=== PATIENT | female | born 1980 | race Caucasian/White ===

== ENCOUNTER 2022-10-27 14:32 | Emergency (ER) | payer MEDICAID ==
[~2022-10-27] VITALS: Ht 160 cm; Wt 81.6 kg
[2022-10-27] MEDS ORDERED: LIDOCAINE VISCUS 2% 15 ML UDC MM ONE (15:15)
[2022-10-27] MEDS ORDERED: MAG HYDROX/AL HYDROX/SIMETH 30 ML LIQUID UDC PO ONE (15:15)
[2022-10-27] MEDS ORDERED: FAMOTIDINE 20 MG TABLET PO ONE (15:15)
[2022-10-27] MEDS ORDERED: MAG HYDROX/AL HYDROX/SIMETH 30 ML LIQUID UDC ONE (15:34)
[2022-10-27] MEDS ORDERED: LIDOCAINE VISCUS 2% 15 ML UDC ONE (15:34)
[2022-10-27] MEDS ORDERED: FAMOTIDINE 20 MG TABLET ONE (15:34)
[2022-10-27 15:52] LABS: HEMATOCRIT 40.4 % (31.2-41.9); MEAN CORPUSCULAR HEMOGLOBIN 28.2 uug (24.7-32.8); MEAN CORPUSCULAR VOLUME 86.5 fL (75.5-95.3); PLATELET COUNT (AUTO) 242 K/uL (179-408)
[2022-10-27 16:01] LABS: CARBON DIOXIDE 26 mmol/L (21-32); CHLORIDE 102 mmol/L (98-107); CREATININE 0.5 mg/dL (0.6-1.3); GLUCOSE 87 mg/dL (74-106); POTASSIUM 3.5 mmol/L (3.5-5.1); UREA NITROGEN, BLOOD 10 mg/dL (7-18)
[2022-10-27 16:10] LABS: ALANINE AMINOTRANSFERASE 26 U/L (14-59); ALKALINE PHOSPHATASE 91 U/L (50-136); ASPARTATE AMINOTRANSFERASE 21 U/L (15-37); BILIRUBIN,DIRECT 0.1 mg/dL (0.0-0.2); BILIRUBIN,TOTAL 0.3 mg/dL (0.2-1.0); TOTAL PROTEIN, SERUM 7.8 g/dL (6.4-8.2)
--- NOTE | 2022-10-27 16:31 | NUR ---
Pt seen by MD for bedside Eval.
--- NOTE | 2022-10-27 18:11 | NUR ---
Patient discharged to home in stable condition. Written and verbal after care instructions given. Patient verbalizes understanding of instructions. Stressed follow up or return to ER for worsening s/s.
[2022-10-27 18:12] VITALS: BP 137/96
== END 2022-10-27 18:13 | disposition home or self-care (01) ==
LOC: ER 14:39
DX: R07.89 Other chest pain (principal); R07.0 Pain in throat
CPT/HCPCS: 36415; 71045; 84484; 85025; 93005; A4663